=== PATIENT | male | born 1940 | race Caucasian/White ===

== ENCOUNTER 2017-01-19 18:58 | Outpatient (CLI) | payer MEDICARE, OTHER | END 2017-01-19 18:59 | disposition critical access hospital (66) | DX: R10.9 Unspecified abdominal pain (principal) | CPT/HCPCS: A0425; A0427 ==

== ENCOUNTER 2017-01-19 19:17 | Emergency (ER) | payer MEDICARE, OTHER ==
[2017-01-19] MEDS ORDERED: HYDROmorphone 1 MG/ML SYRINGE IVP STA (20:23)
[2017-01-19] MEDS ORDERED: KETOROLAC 60 MG/2 ML VIAL IVP STA (20:23)
[2017-01-19] MEDS ORDERED: SODIUM CHLORIDE 0.9% 500 ML IV STA (20:23)
[2017-01-19] MEDS ORDERED: HYDROmorphone 1 MG/ML SYRINGE ONE (20:27)
[2017-01-19] MEDS ORDERED: KETOROLAC 30 MG/ML VIAL ONE (20:27)
== END 2017-01-19 23:40 | disposition home or self-care (01) ==
DX: N13.2 Hydronephrosis with renal and ureteral calculous obstruction (principal); Z87.442 Personal history of urinary calculi; K57.30 Diverticulosis of large intestine without perforation or abscess without bleeding; I10 Essential (primary) hypertension; Z79.82 Long term (current) use of aspirin
CPT/HCPCS: 36415; 74176; 80048; 81001; 85025; 96374; 96375; 99284; J1170

== ENCOUNTER 2018-01-07 12:13 | Outpatient (CLI) | payer MEDICARE, OTHER ==
--- NOTE | 2018-01-09 08:15 | Ultrasound Report ---
EXAM: ABDOMEN ULTRASOUND EXAM DATE: 01/07/2018 02:21 PM. CLINICAL HISTORY: Abdominal pain. COMPARISON: None. TECHNIQUE: Real-time scanning was performed with static images obtained. FINDINGS: Exam is limited due to patient body habitus. Liver: Diffuse increased echogenicity compatible fatty infiltration. No focal abnormality demonstrate d. Borderline-enlarged, right lobe length 18 cm, previously measured as 19 cm. Main portal vein flow: Hepatopetal. Gallbladder: No stones, gallbladder dilatation, adjacent fluid or sonographic Chester sign. There is d iffuse gallbladder wall thickening. Much of the wall measures 6 mm and less and size. There is an are a measuring as much as 10 mm thick. This could represent adenomyomatosis. However, it is not specific . Inflammation is not excluded. Biliary System: Common bile duct measures 4.8 mm. No intrahepatic or extrahepatic ductal dilatation. Pancreas: Not well visualized. No gross abnormality demonstrated. Kidneys: Right: 10.3 cm longitudinally. Multiple cysts again demonstrated, measuring up to 4.6 cm, previously reported as up to 5.4 cm. No contour-deforming mass, stones, or hydronephrosis. Left: 12.5 cm longitudinally. 3.7 cm cyst, without significant change.. No contour-deforming mass, st ones, or hydronephrosis. Spleen: Maximum diameter 9.2 cm. Normal in size and echotexture. Aorta and Inferior Vena Cava: Aorta appears unremarkable. The IVC is not well visualized. Other: No free fluid demonstrated. IMPRESSION: 1. Hepatic borderline enlargement and a pattern consistent with diffuse fatty infiltration. 2. Gallbladder wall thickening is nonspecific. Differential diagnosis includes adenomyomatosis and in flammation although there are no other sonographic signs of acute cholecystitis. Clinical correlation recommended. 3. Bilateral renal cysts redemonstrated. [facility] Referring Provider Line: [phone] SITE ID: [id number]
== END 2018-01-07 12:14 | disposition home or self-care (01) ==
LOC: DI 12:13
PROVIDERS: ATTEND Internal Medicine
DX: R10.31 Right lower quadrant pain (principal); Q61.02 Congenital multiple renal cysts
CPT/HCPCS: 76700

== ENCOUNTER 2019-03-16 09:27 | Outpatient (CLI) | payer MEDICARE, OTHER ==
--- NOTE | 2019-03-16 11:19 | Ultrasound Report ---
Reason: ABD PAIN Procedure Date: 03/16/2019 Accession Number: [id number] / [id number] Procedure: US - Abdomen Complete CPT Code: FULL RESULT: EXAM: ABDOMEN ULTRASOUND EXAM DATE: 03/16/2019 10:43 AM. CLINICAL HISTORY: ABD PAIN. COMPARISON: ABDOMEN COMPLETE 01/07/2018 1:06 PM. TECHNIQUE: Real-time scanning was performed with static images obtained. FINDINGS: Liver: Diffusely echogenic parenchyma. Left lobe is suboptimally evaluated because of bowel gas. 19 cm. Main portal vein flow: Hepatopetal. Gallbladder: Normal. No stones, wall thickening, or sonographic Chester's sign. Biliary System: Common bile duct measures 5 mm. No intrahepatic or extrahepatic ductal dilatation. Pancreas: Obscured by overlying bowel gas. Kidneys: Right: 10.0 cm longitudinally. Diffuse parenchymal thinning. Multiple cysts with dominant upper pole cyst measuring 5.5 cm maximal diameter. Left: 12.4 cm longitudinally. No suspicious mass. There is an 8 mm mid pole nonobstructing intrarenal calculus. Spleen: 8.7 cm. Normal in size and echotexture. Aorta and Inferior Vena Cava: Abdominal aortic aneurysm. Intrahepatic IVC is patent. Other: None. IMPRESSION: 1. Diffusely echogenic liver parenchyma most often associated with steatosis. No suspicious mass. There is mild hepatomegaly. No splenomegaly. 2. The pancreas cannot be evaluated. 3. No other significant abnormality. [facility]
== END 2019-03-16 09:28 | disposition home or self-care (01) ==
LOC: DI 09:27
PROVIDERS: ATTEND Internal Medicine
DX: R10.32 Left lower quadrant pain (principal)
CPT/HCPCS: 76700

== ENCOUNTER 2020-08-08 08:00 | Outpatient (CLI) | payer MEDICARE, OTHER ==
--- NOTE | 2020-08-08 09:10 | XRAY Report ---
PROCEDURE: Hip BILAT INDICATIONS: RIGHT HIP PAIN TECHNIQUE: 2 views of the hip were acquired. COMPARISON: None FINDINGS: Bones: No fractures or dislocations. No suspicious bony lesions. The visualized pelvic ring appear s intact. 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 There is slight flattening of the right femoral head with areas of subchondral sclerosis. Soft tissues: No suspicious soft tissue calcifications or masses. IMPRESSION: Significant degenerative changes within the hips, right greater than left. 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 No visualized acute fracture or dislocation. However, occult injury cannot be excluded. Recommend chidi rt interval imaging follow-up in 7-10 days as clinically indicated for additional evaluation. Reviewed by: Rosie Wolff MD on 08/08/2020 9:09 AM PST Approved by: Rosie Wolff MD on 08/08/2020 9:09 AM PST Station ID: [id number]
== END 2020-08-08 23:59 | disposition home or self-care (01) ==
LOC: DI.WCP 08:00
PROVIDERS: ATTEND Orthopaedic Surgery
DX: M16.0 Bilateral primary osteoarthritis of hip (principal)
CPT/HCPCS: 73521

== ENCOUNTER 2021-05-08 12:44 | Outpatient (CLI) | payer MEDICARE, OTHER | END 2021-05-08 12:45 | disposition EMS.NT | LOC: EMS 12:44 | DX: Z04.1 Encounter for examination and observation following transport accident (principal) ==

== ENCOUNTER 2022-11-05 10:33 | Outpatient (CLI) | payer MEDICARE, OTHER | END 2022-11-05 10:34 | disposition EMS.NT | LOC: EMS 10:33 | DX: J34.89 Other specified disorders of nose and nasal sinuses (principal); R53.1 Weakness ==

== ENCOUNTER 2022-11-05 18:53 | Outpatient (CLI) | payer MEDICARE, OTHER | END 2022-11-05 18:54 | disposition critical access hospital (66) | LOC: EMS 18:53 | DX: U07.1 COVID-19 (principal) | CPT/HCPCS: A0425; A0429 ==

== ENCOUNTER 2022-11-05 19:13 | Emergency (ER) | payer MEDICARE, OTHER ==
[2022-11-05] MEDS ORDERED: SODIUM CHLORIDE 0.9% 500 ML IV STA (19:51)
[2022-11-05] MEDS ORDERED: ACETAMINOPHEN 325 MG TABLET PO STA (19:52)
--- NOTE | 2022-11-05 19:54 | ED Physician Documentation ---
History of Present Illness - Stated complaint Stated Complaint: C+, COUGH - Chief complaint Chief Complaint: Resp - History obtained from History obtained from: Patient - History of Present Illness Timing: How many days ago (4-5) Pain level now: 0 - Additonal information Additional information: HPI from patient. Patient is brought in by ambulance. Patient complains of productive cough, generalized weakness, fever. He is unable to say what the T-max at home was, although he is noted to be febrile during the ED triage process. He also says he had a fall this morning due to generalized weakness, although he denies injury and denies loss of consciousness. His symptoms have been of gradual onset, and slowly worsening over the past 4 to 5 days. Today, he took a home COVID test, and the result was positive. He denies shortness of breath, chest pain. Denies headache. He last took Tylenol this morning. Fingerstick blood sugar by EMS was 140. Review of Systems Constitutional: reports: Fever, Myalgias, Fatigue Cardiac: denies: Chest pain / pressure Respiratory: reports: Cough. denies: Dyspnea Neurologic: reports: Generalized weakness. denies: Headache PD PAST MEDICAL HISTORY - Past Medical History Cardiovascular: Hypertension : Kidney stones - Past Surgical History Past Surgical History: Yes General: Appendectomy HEENT: Cataracts - Present Medications Home Medications: Ambulatory Orders Medication Instructions Recorded Confirmed Ascorbic Acid [Vitamin C] 1,000 mg PO DAILY 01/19/17 01/19/17 Aspirin Chewable [St Winston 162 mg PO DAILY 01/19/17 01/19/17 Aspirin] Atorvastatin [Lipitor] 20 mg PO DAILY 01/19/17 01/19/17 Atropine 1% Ophth Drops [Isopto 1 drops EACHEYE DAILY 01/19/17 01/19/17 Atropine 1% Ophth Drops] Cholecalciferol (Vitamin D3) 2,000 unit PO DAILY 01/19/17 01/19/17 [Vitamin D] Dorzolamide 2% Ophth Drops 1 drops EACHEYE DAILY 01/19/17 01/19/17 [Trusopt 2% Ophth Drops] Flaxseed Oil 1,000 mg PO DAILY 01/19/17 01/19/17 Garlic 1,000 mg PO DAILY 01/19/17 01/19/17 HYDROmorphone [Dilaudid] 2 mg PO Q6H PRN #14 tablet 01/19/17 Latanoprost 0.005% Ophth Drops 1 drops EACHEYE DAILY 01/19/17 01/19/17 [Xalatan Ophth Drops] [place]-3/Dha/Epa/Fish Oil [Fish Oil 1,000 mg PO DAILY 01/19/17 01/19/17 1,000 mg Softgel] Telmisartan [Micardis] 80 mg PO DAILY 01/19/17 01/19/17 Timolol Maleate/Pf [Timoptic 0.5% 1 drops EACHEYE DAILY 01/19/17 01/19/17 Ocudose Drop] prednisoLONE 1% OPHTH DROPS [Pred 1 drops EACHEYE DAILY 01/19/17 01/19/17 Forte 1% Ophth Drops] Azithromycin [Zithromax] 250 mg PO DAILY #4 tablet 11/06/22 - Allergies Allergies/Adverse Reactions: Allergies Allergy/AdvReac Type Severity Reaction Status Date / Time No Known Drug Allergies Allergy Verified 11/05/22 19:29 - Social History Does the pt smoke?: No Smoking Status: Never smoker Does the pt drink ETOH?: No Does the pt have substance abuse?: No - Immunizations Immunizations are current?: Yes - POLST Patient has POLST: No PD ED PE NORMAL - Vitals Vital signs reviewed: Yes - General General: Alert and oriented X 3 (Answers slowly, but accurately. 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 After several other breaths and some coughing, the rhonchi improved and he only has residual mild scattered left rhonchi in mid-lung field). No: Rales - Extremities Extremities: Pedal edema bilateral (mild BLE pitting edema feet, ankles) Results - Vitals Vitals: Vital Signs - 24 hr 11/05/22 11/05/22 11/06/22 19:24 22:35 00:37 Temperature 38.7 C H 36.8 C Heart Rate 89 77 75 Respiratory 16 19 17 Rate Blood Pressure 115/83 H 107/69 123/64 O2 Saturation 94 96 96 Oxygen O2 Source Room air - Labs Labs: Laboratory Tests 11/05/22 11/05/22 11/05/22 20:13 20:13 20:13 WBC 6.7 RBC 3.99 L Hgb 11.9 L Hct 37.2 L MCV 93.2 MCH 29.8 MCHC 32.0 RDW 13.0 Plt Count 135 MPV 10.4 Neut # (Auto) 5.3 Lymph # (Auto) 0.6 L [place] # (Auto) 0.7 Eos # (Auto) 0.0 Baso # (Auto) 0.0 Absolute Nucleated RBC 0.00 Nucleated RBC % 0.0 Sodium 132 L Potassium 3.3 L Chloride 98 L Carbon Dioxide 20 L Anion Gap 14.0 H BUN 19 Creatinine 0.9 Estimated GFR (MDRD) 81 L Glucose 127 H Calcium 8.1 L Total Bilirubin 0.8 AST 29 ALT 17 Alkaline Phosphatase 60 B-Natriuretic Peptide 195 H Total Protein 6.5 L Albumin 3.6 Globulin 2.9 Albumin/Globulin Ratio 1.2 Lipase 24 Nasal Adenovirus (PCR) Nasal B. parapertussis DNA (PCR) Nasal Coronavir 229E PCR Nasal Coronavir HKU1 PCR Nasal Coronavir NL63 PCR Nasal Coronavir OC43 PCR Nasal Enterovir/Rhinovir PCR Nasal Influenza B PCR Nasal Influenza A PCR Nasal Parainfluen 1 PCR Nasal Parainfluen 2 PCR Nasal Parainfluen 3 PCR Nasal Parainfluen 4 PCR Nasal RSV (PCR) Nasal B.pertussis DNA PCR Nasal C.pneumoniae (PCR) Rah Human Metapneumo PCR Nasal M.pneumoniae (PCR) Nasal SARS-CoV-2 (PCR) 11/05/22 20:45 WBC RBC Hgb Hct MCV MCH MCHC RDW Plt Count MPV Neut # (Auto) Lymph # (Auto) [place] # (Auto) Eos # (Auto) Baso # (Auto) Absolute Nucleated RBC Nucleated RBC % Sodium Potassium Chloride Carbon Dioxide Anion Gap BUN Creatinine Estimated GFR (MDRD) Glucose Calcium Total Bilirubin AST ALT Alkaline Phosphatase B-Natriuretic Peptide Total Protein Albumin Globulin Albumin/Globulin Ratio Lipase Nasal Adenovirus (PCR) NOT DETECTED Nasal B. parapertussis DNA (PCR) NOT DETECTED Nasal Coronavir 229E PCR NOT DETECTED Nasal Coronavir HKU1 PCR NOT DETECTED Nasal Coronavir NL63 PCR NOT DETECTED Nasal Coronavir OC43 PCR NOT DETECTED Nasal Enterovir/Rhinovir PCR NOT DETECTED Nasal Influenza B PCR NOT DETECTED Nasal Influenza A PCR NOT DETECTED Nasal Parainfluen 1 PCR NOT DETECTED Nasal Parainfluen 2 PCR NOT DETECTED Nasal Parainfluen 3 PCR NOT DETECTED Nasal Parainfluen 4 PCR NOT DETECTED Nasal RSV (PCR) NOT DETECTED Nasal B.pertussis DNA PCR NOT DETECTED Nasal C.pneumoniae (PCR) NOT DETECTED Rah Human Metapneumo PCR NOT DETECTED Nasal M.pneumoniae (PCR) NOT DETECTED Nasal SARS-CoV-2 (PCR) DETECTED A - Rads (name of study) CXR Radiology: Prelim report reviewed, EMP read indepedently, See rad report PD Medical Decision Making - ED course Complexity details: reviewed results, re-evaluated patient, considered differential, d/w patient ED course: Tests ordered and results reviewed by me: Respiratory PCR panel, chest x-ray (chest x-ray was ordered by my colleague, KIKI Clark, just prior to the beginning of my shift, but I did review the chest x-ray myself), CBC, ER abdominal panel, BNP. There are no concerning or diagnostic findings on the blood tests performed. The white blood cell count is normal. He has a normal BUN and creatinine. Mild hyponatremia with sodium of 132, mild hypokalemia with potassium of 3.3. He has a mildly elevated BNP (195). His respiratory PCR panel confirms he is positive for COVID; he is negative for the other viruses tested on this panel. Radiologist interprets the chest x-ray is "mild diffuse lung disease could represent edema or infection. No pleural effusions. Suspected basal atelectasis. There might be a calcified granuloma in the right midlung. Consider future imaging surveillance to assess for resolution." I discussed the results of the tests with the patient. On this reevaluation, patient says he is feeling better. Prior to this reevaluation, the ED RN had patient stand and walk to and back from the bathroom (in the patient's room), and the nurse notes that he was able to do so without any assistance. Furthermore, ED RN notes that patient was then able to put his pants back on on his own. I recommended to patient that he takes Paxil bed, and I explained what this medication is and what it is for. He is agreeable to this medication, and he is provided the Paxlovid kit. I advised him to stop his atorvastatin for the 5 days that he takes the Paxlovid, as well as to avoid any garlic pills as this can affect the absorption. Given the findings on the chest x-ray, and his productive cough that continued, although decreasing in frequency, during his ER stay, I am also providing a prescription for Zithromax (the first dose was given in the ER prior to discharge). This is given to cover for a possible bacterial secondary infection. Departure - Departure Disposition: 01 Home, Self Care Clinical Impression: COVID-19 Condition: Good Instructions: ED Viral Syndrome Prescriptions: Azithromycin [Zithromax] 250 mg PO DAILY #4 tablet Comments: The viral tests confirm that you do have COVID, but you were negative for several other viruses that were tested. There were no concerning abnormalities on the blood tests. Your chest x-ray does show mild inflammatory changes in both lungs; this is not unusual with COVID.Your oxygen level throughout your emergency department stay was within a normal range. You have been provided with antiviral medications and a kit which includes instructions on how they are to be taken; this medication is a combination is called Pavlovid, and it should lower the chances that you get more sick and need to come back to the hospital, and it can speed up the time to getting over this particular viral infection (COVID). YOU NEED TO STOP TAKING GARLIC PILLS/SUPPLEMENTS WELL THE LIPITOR (ATORVASTATIN) WHILE TAKING THE PAXLOVID. Because of the abnormal x-ray findings, and considering how much discolored sputum you have been coughing up, I have also prescribed you an antibiotic. Antibiotics do not work on viruses, but sometimes A bacterial infection can set in while you are fighting off a viral infection. The antibiotic should help lower the chances that you develop a bacterial pneumonia, and would help fight off the infection if you already are dealing with a bacterial infection on top of the viral one. You are given the first dose of the antibiotic (azithromycin) in the emergency department, and the prescription for the remaining 4 days of this antibiotic has been electronically submitted to the [facility] pharmacy in [place]. Google "CDC isolation" and then click on the link to "Isolation and Precautions for People with COVID-19 - CDC". This will have useful information for you as well as household contacts. There is a calculator on the page that will determine when you can end isolation. Discharge Date/Time: 11/06/22 01:20
[2022-11-05 20:19] LABS: BASOPHILS % (AUTO) 0.2 %; HCT - HEMATOCRIT 37.2 % (42.0-52.0); HGB - HEMOGLOBIN 11.9 g/dL (14.0-18.0); LYMPHOCYTES # (AUTO) 0.6 10^3/uL (1.5-3.5); LYMPHOCYTES % (AUTO) 8.9 %; MEAN CORPUSCULAR HEMOGLOBIN 29.8 pg (27.0-31.0); MEAN CORPUSCULAR VOLUME 93.2 fL (80.0-94.0); MEAN PLATELET VOLUME 10.4 fL (7.4-11.4); MONOCYTES # (AUTO) 0.7 10^3/uL (0.0-1.0); MONOCYTES % (AUTO) 10.7 %; NEUTROPHILS # (AUTO) 5.3 10^3/uL (1.5-6.6); NEUTROPHILS % (AUTO) 79.9 %; PLT - PLATELET COUNT 135 10^3/uL (130-450); RED BLOOD COUNT 3.99 10^6/uL (4.70-6.10); WHITE BLOOD COUNT 6.7 x10^3/uL (4.8-10.8)
--- NOTE | 2022-11-05 20:19 | XRAY Report ---
PROCEDURE: Chest 1 View X-Ray INDICATIONS: chest pain TECHNIQUE: One view of the chest was acquired. COMPARISON: None FINDINGS: Surgical changes and devices: None. Lungs and pleura: Possible calcified granuloma in the right midlung. Mild diffuse lung disease. No d ense consolidation. No pleural effusions. Suspected basal atelectasis as well. Mediastinum: Borderline enlarged heart. Bones and chest wall: No suspicious bony lesions. Overlying soft tissues appear unremarkable. IMPRESSION: Mild diffuse lung disease could represent edema or infection. No pleural effusions. Suspected basal a telectasis. There might be a calcified granuloma in the right midlung. Consider future imaging survei llance to assess for resolution. Reviewed by: Gonzalez Pratt MD on 11/05/2022 8:18 PM PST Approved by: Gonzalez Pratt MD on 11/05/2022 8:18 PM PST Station ID: [id number]
[2022-11-05 20:56] LABS: ALBUMIN 3.6 g/dL (3.2-5.5); ALBUMIN/GLOBULIN RATIO 1.2 (1.0-2.2); BILIRUBIN,TOTAL 0.8 mg/dL (0.2-1.0); CALCIUM 8.1 mg/dL (8.5-10.3); CREATININE 0.9 mg/dL (0.6-1.2); POTASSIUM 3.3 mmol/L (3.5-5.0); TOTAL PROTEIN 6.5 g/dL (6.7-8.2)
[2022-11-05 21:58] LABS: CORONAVIRUS 229E-RESP PCR NOT DETECTED; CORONAVIRUS HKU1-RESP PCR NOT DETECTED; CORONAVIRUS NL63-RESP PCR NOT DETECTED; CORONAVIRUS OC43-RESP PCR NOT DETECTED
[2022-11-05 21:59] LABS: B. PARAPERTUSSIS- RESP PCR PAN NOT DETECTED; B. PERTUSSIS- RESP PCR PANEL NOT DETECTED; C. PNEUMONIAE- RESP PCR PANEL NOT DETECTED; HUMAN METAPNEUMOVIRUS NOT DETECTED; INFLUENZA A- RESP PCR PANEL NOT DETECTED; INFLUENZA B - RESP PCR PANEL NOT DETECTED; M. PNEUMONIAE- RESP PCR PANEL NOT DETECTED; PARAINFLUENZA VIRUS 1 NOT DETECTED; PARAINFLUENZA VIRUS 2 NOT DETECTED; PARAINFLUENZA VIRUS 3 NOT DETECTED; PARAINFLUENZA VIRUS 4 NOT DETECTED; RHINOVIRUS/ENTEROVIRUS NOT DETECTED; RSV- RESP PCR PANEL NOT DETECTED; SARS-CoV-2 -RESP PCR PANEL DETECTED
[2022-11-06] MEDS ORDERED: NIRMATRELVIR/RITONAVIR PREPACK PO STA (00:16)
[2022-11-06] MEDS ORDERED: AZITHROMYCIN 250 MG TABLET PO STA (00:28)
[2022-11-06 00:37] VITALS: BP 123/64
== END 2022-11-06 01:20 | disposition home or self-care (01) ==
LOC: EDUNIT# → ED 19:13
DX: U07.1 COVID-19 (principal); R91.8 Other nonspecific abnormal finding of lung field; Z79.899 Other long term (current) drug therapy; Z20.822 Contact with and (suspected) exposure to COVID-19
CPT/HCPCS: 36415; 71045; 80053; 83690; 83880; 85025; 87633; 96360; 99284; A9270; J3490

== ENCOUNTER 2023-03-09 19:33 | Outpatient (CLI) | payer MEDICARE, OTHER | END 2023-03-09 23:59 | disposition critical access hospital (66) | LOC: EMS 19:33 | DX: M25.512 Pain in left shoulder (principal); M79.622 Pain in left upper arm | CPT/HCPCS: A0425; A0429 ==

== ENCOUNTER 2023-03-09 19:55 | Emergency (ER) | payer MEDICARE, OTHER ==
--- NOTE | 2023-03-09 20:53 | ED Physician Documentation ---
History of Present Illness - Stated complaint Stated Complaint: L SHOULDER PX - Chief complaint Chief Complaint: Ext Problem - History obtained from History obtained from: Patient, Family (granddaughter) - Additonal information Additional information: 82-year-old male , ambulatory with cane in L hand, p/w L shoulder pain X 2 weeks. no history of truama. no other symptoms. Review of Systems Constitutional: denies: Fever Cardiac: denies: Chest pain / pressure Respiratory: denies: Dyspnea GI: denies: Nausea, Vomiting Musculoskeletal: reports: Extremity pain. denies: Back pain, Joint pain Neurologic: denies: Focal weakness, Numbness PD PAST MEDICAL HISTORY - Past Medical History Cardiovascular: Hypertension : Kidney stones - Past Surgical History Past Surgical History: Yes General: Appendectomy HEENT: Cataracts - Present Medications Home Medications: Ambulatory Orders Medication Instructions Recorded Confirmed Ascorbic Acid [Vitamin C] 1,000 mg PO DAILY 01/19/17 03/09/23 Aspirin Chewable [St Winston 162 mg PO DAILY 01/19/17 03/09/23 Aspirin] Atorvastatin [Lipitor] 20 mg PO DAILY 01/19/17 03/09/23 Atropine 1% Ophth Drops [Isopto 1 drops EACHEYE DAILY 01/19/17 03/09/23 Atropine 1% Ophth Drops] Cholecalciferol (Vitamin D3) 2,000 unit PO DAILY 01/19/17 03/09/23 [Vitamin D] Dorzolamide 2% Ophth Drops 1 drops EACHEYE DAILY 01/19/17 03/09/23 [Trusopt 2% Ophth Drops] Flaxseed Oil 1,000 mg PO DAILY 01/19/17 03/09/23 Garlic 1,000 mg PO DAILY 01/19/17 03/09/23 Latanoprost 0.005% Ophth Drops 1 drops EACHEYE DAILY 01/19/17 03/09/23 [Xalatan Ophth Drops] [place]-3/Dha/Epa/Fish Oil [Fish Oil 1,000 mg PO DAILY 01/19/17 03/09/23 1,000 mg Softgel] Telmisartan [Micardis] 80 mg PO DAILY 01/19/17 03/09/23 Timolol Maleate/Pf [Timoptic 0.5% 1 drops EACHEYE DAILY 01/19/17 03/09/23 Ocudose Drop] prednisoLONE 1% OPHTH DROPS [Pred 1 drops EACHEYE DAILY 01/19/17 03/09/23 Forte 1% Ophth Drops] Azithromycin [Zithromax] 250 mg PO DAILY #4 tablet 11/06/22 03/09/23 oxyCODONE [Roxicodone] 5 mg PO Q4-6H PRN #15 tablet 03/09/23 - Allergies Allergies/Adverse Reactions: Allergies Allergy/AdvReac Type Severity Reaction Status Date / Time No Known Drug Allergies Allergy Verified 03/09/23 20:11 - Social History Does the pt smoke?: No Smoking Status: Never smoker Does the pt drink ETOH?: No Does the pt have substance abuse?: No - Immunizations Immunizations are current?: Yes - POLST Patient has POLST: No PD ED PE NORMAL - Vitals Vital signs reviewed: Yes - General General: Alert and oriented X 3, No acute distress, Well developed/nourished - HEENT HEENT: Atraumatic, PERRL, EOMI - Neck Neck: Supple, no meningeal sign - Derm Derm: Normal color, Warm and dry - Extremities Extremities: No deformity, Other (L shoulder tender with ROM. FROM. 2+ BL radial pulses) - Neuro Neuro: No motor deficit, No sensory deficit Results - Vitals Vitals: Vital Signs - 24 hr 03/09/23 20:02 Temperature 36.5 C Heart Rate 78 Respiratory 16 Rate Blood Pressure 117/69 O2 Saturation 99 Oxygen O2 Source Room air PD Medical Decision Making - ED course ED course: 82-year-old man presents with left shoulder pain for the past 2 weeks, likely from overuse. Advised him to follow-up with primary care for a referral to physical therapy. Return precautions given. Offered pain medication in the emergency department which he declined. Departure - Departure Disposition: 01 Home, Self Care Clinical Impression: Pain in extremity Condition: Stable Instructions: Oxycodone tablets or capsules Prescriptions: oxyCODONE [Roxicodone] 5 mg PO Q4-6H PRN #15 tablet PRN Reason: Pain 5-7 Comments: You were seen in the emergency department for shoulder pain. follow-up with your primary care provider for referral to physical therapy. Return to the e mergency department for new or worsening symptoms or other concerns. An electronic prescription for oxycodone was sent to [facility].
[2023-03-09 21:12] VITALS: BP 110/68
== END 2023-03-09 21:11 | disposition home or self-care (01) ==
LOC: EDUNIT# → ED 19:55
DX: M25.512 Pain in left shoulder (principal)
CPT/HCPCS: 99283